=== PATIENT | female | born 1985 | race Caucasian/White ===

== ENCOUNTER 2024-04-06 12:30 | Inpatient (IN) | payer MEDICAID, OTHER ==
[~2024-04-06 12:30] MED LIST: ePHEDrine Sulfate 50 MG/10 ML VIAL ONE
[2024-04-06 20:39] VITALS: BMI 26.6
[2024-04-06] MEDS ORDERED: Misoprostol 200 MCG TAB PR PRN (23:31)
[2024-04-06] MEDS ORDERED: Carboprost 250 MCG/ML AMP IM PRN (23:31)
[2024-04-06] MEDS ORDERED: Ibuprofen 800 MG TAB PO PRN (23:31)
[2024-04-06] MEDS ORDERED: HYDROcodone/Acetaminophen 5/325 mg Tablet PO PRN (23:31)
[2024-04-06] MEDS ORDERED: Tranexamic Acid 1,000 MG/10 ML VIAL IVP PRN (23:31)
[2024-04-06] MEDS ORDERED: Acetaminophen 500 MG TAB PO PRN (23:31)
[2024-04-06] MEDS ORDERED: hydrALAZINE 20 MG/ML VIAL SLOW IVP PRN (23:31)
[2024-04-06] MEDS ORDERED: Methylergonovine 0.2 MG/ML VIAL IM PRN (23:31)
[2024-04-06] MEDS ORDERED: Promethazine HCl 25 MG/ML VIAL IM PRN (23:31)
[2024-04-06] MEDS ORDERED: Lidocaine 1% (PF) 30 ML VIAL SC PRN (23:31)
[2024-04-06] MEDS ORDERED: Diphenoxylate HCl/Atropine Tablet PO PRN (23:31)
[2024-04-06] MEDS ORDERED: Ondansetron PF 4 MG/2 ML Vial IVP PRN (23:31)
[2024-04-06] MEDS ORDERED: Oxytocin 30 units/NS 500 ML 500 ML IV SCH ×2 (23:45)
[2024-04-06 23:59] LABS: Hematocrit 33.3 % (34.9-44.5); Hemoglobin 10.8 g/dL (12.0-15.5); Mean Corpuscular HGB CONC 32.4 g/dL (32.0-36.0); Mean Corpuscular Hemoglobin 26.7 pg (27.0-33.0); Mean Corpuscular Volume 82.4 fL (81.6-98.3); Mean Platelet Volume 11.6 fL (7.4-10.4); Platelet Count 279 10x3/uL (150-450); RBC Distribution Width 14.3 % (11.5-14.5); Red Blood Cell (RBC) Count 4.04 10x6/uL (3.90-5.03); White Blood Cell (WBC) Count 7.5 10x3/uL (3.5-10.5)
[2024-04-07 00:18] LABS: Syphilis Antibody Nonreactive (Nonreactive); Syphilis Antibody Index 0.06 S/CO (<1.00 Non-Reactive)
[2024-04-07 00:19] LABS: HBsAg Index 0.19 S/CO (0-0.99); Hep B Surf Ag - L&D Non-Reactive S/CO (NonReactive)
[2024-04-07] MEDS ORDERED: Misoprostol 100 MCG TAB PO SCH (01:00)
[2024-04-07] MEDS: fentaNYL 50 mcg/mL 1 mL Vial SLOW IVP PRN (04:45)
[2024-04-07] MEDS: Lactated Ringer's 1,000 ML IV SCH (05:35)
[2024-04-07] MEDS: Oxytocin 30 units/NS 500 ML 500 ML IV SCH (05:35)
[2024-04-07] MEDS: fentaNYL/Ropivacaine Epidural 100 ML ONE (06:03)
[2024-04-07] MEDS ORDERED: ePHEDrine Sulfate 50 MG/10 ML VIAL SLOW IVP PRN (06:23)
[2024-04-07] MEDS ORDERED: Ondansetron PF 4 MG/2 ML Vial IVP PRN ×2 (06:23→16:10)
[2024-04-07] MEDS ORDERED: Promethazine HCl 25 MG/ML VIAL IM PRN ×2 (06:23→16:10)
[2024-04-07] MEDS ORDERED: Lactated Ringer's 500 ML IV PRN (06:23)
[2024-04-07] MEDS ORDERED: Acetaminophen 325 MG TAB PO PRN (06:23)
[2024-04-07] MEDS ORDERED: Moisturizing Cream (Eucerin) 113 GM JAR TOP PRN (06:23)
[2024-04-07] MEDS ORDERED: Naloxone HCl 0.4 mg/ml Vial IVP PRN ×2 (06:23)
[2024-04-07] MEDS ORDERED: diphenhydrAMINE 50 MG/ML VIAL IVP PRN (06:23)
[2024-04-07] MEDS ORDERED: Communication Order-Pharmacy FS SCH (06:30)
[2024-04-07] MEDS ORDERED: fentaNYL 2 mcg/Ropivacaine 0.2% Epidural 100 ML CADD EPIDURAL SCH (06:30)
[2024-04-07] MEDS ORDERED: Benzocaine-Menthol 82.5 ML CAN TOP PRN (16:10)
[2024-04-07] MEDS ORDERED: diphenhydrAMINE 25 MG CAP PO PRN (16:10)
[2024-04-07] MEDS ORDERED: HYDROcodone/Acetaminophen 5/325 mg Tablet PO PRN (16:10)
[2024-04-07] MEDS ORDERED: Milk Of Magnesia 30 ML UDCUP PO PRN (16:10)
[2024-04-07] MEDS ORDERED: Lanolin Ointment 7 GM TUBE TOP PRN (16:10)
[2024-04-07] MEDS ORDERED: Bisacodyl 10 MG SUPP PR PRN (16:10)
[2024-04-07] MEDS ORDERED: hydrALAZINE 20 MG/ML VIAL SLOW IVP PRN (16:10)
[2024-04-07] MEDS: Boostrix 0.5 ML (Tdap) VIAL (>/=7 yrs of age) IM ONE (16:16)
[2024-04-07] MEDS: Ferrous Sulfate 325 MG TAB PO SCH (16:20)
[2024-04-07] MEDS: Ibuprofen 800 MG TAB PO SCH (20:17)
[2024-04-07] MEDS: Docusate 100 MG CAP PO SCH (20:17)
[2024-04-08] MEDS: Ibuprofen 800 MG TAB PO SCH (07:12)
[2024-04-08] MEDS: Prenatal Vitamin 1 TAB PO SCH (08:38)
[2024-04-08 11:46] VITALS: BP 90/53; TEMP 98.7
== END 2024-04-08 19:10 | disposition home or self-care (01) | DRG 807 ==
LOC: CSHLD 20:09 → CSHPP 04-07 15:40
PROVIDERS: ADMIT Family Medicine; ATTEND Family Medicine
PROC: 10E0XZZ Delivery of Products of Conception, External Approach (ICD-10-PCS; principal; 2024-04-07)
PROC: 0KQM0ZZ Repair Perineum Muscle, Open Approach (ICD-10-PCS; 2024-04-07)
DX: O24.429 Gestational diabetes mellitus in childbirth, unspecified control (principal); Z37.0 Single live birth; Z3A.39 39 weeks gestation of pregnancy; Z79.899 Other long term (current) drug therapy; Z79.82 Long term (current) use of aspirin; O70.1 Second degree perineal laceration during delivery
CPT/HCPCS: 36416; 51702; 85027; 86780; 86850; 86900; 86901; 87340; J2590; J3010; J7120